=== PATIENT | male | born 1980 | race Caucasian/White ===

== ENCOUNTER 2017-04-10 12:22 | Emergency (ER) | payer SELFPAY ==
[~2017-04-10] VITALS: Ht 176.5 cm; Wt 112.4 kg
[2017-04-10 12:24] VITALS: BP 152/93; PULSE 74; TEMP 36.9; O2SAT 97; Ht 176.5 cm; Wt 112.4 kg
--- NOTE | 2017-04-10 13:37 | DIAGNOSTIC IMAGING REPORT ---
R HAND MIN 3 VIEWS ROUTINE CLINICAL HISTORY: Right hand pain. Trauma. COMPARISON: None. DISCUSSION: No acute fractures or dislocations are visualized. There is suspected widening of the scapholunate distance. This could represent a scapholunate ligamentous disruption. IMPRESSION: 1. No acute fractures or dislocations 2. Within the wrist, there is widening of the scapholunate distance Electronically signed by: Theo Johnson M.D. 04/10/2017 1:36 PM Dictated Date/Time: 04/10/2017 1:34 PM
[2017-04-10] MEDS ORDERED: NAPR-1169 PO (14:00)
--- NOTE | 2017-04-10 14:01 | EMERGENCY ROOM VISIT NOTE ---
ED Visit Note First contact with patient: 12:29 CHIEF COMPLAINT: Hand injury HISTORY OF PRESENT ILLNESS: This 37-year-old male patient presented to the emergency department ambulatory complaining of pain in the right hand. The patient reports he has had pain and swelling over the palmar aspect of the right third knuckle for the past 2-3 months. He states that he initially noticed swelling, and this has progressed to pain and difficulty moving the finger. He denies any trauma to the hands. He denies any family history of a similar condition. He has not been seen by orthopedics for this in the past. He rates his overall discomfort a 6/10. REVIEW OF SYSTEMS: A 6 system review of systems was completed with positives and pertinent negatives in the HPI. ALLERGIES: No known drug allergies MEDICATIONS: No chronic medications PMH: No significant past medical history. SOCIAL HISTORY: The patient lives locally with family. He is a smoker and admits to occasional alcohol use. PHYSICAL EXAM: Vital Signs: Reviewed Nurse's notes, vital signs stable. GENERAL : This is a 37-year-old male, in no acute distress, well-developed, well- nourished. MUSCULOSKELETAL: There is nodular swelling over the palmar aspect of the right third MCP. This is tender to palpation. Patient has full flexion and extension of the finger, but does have some increased discomfort with full extension. [employer] strength 5/5. There is no laceration. Capillary refill less than 2 seconds. No tenderness of the fingers or wrist. Full range of motion of the wrist. No snuff box tenderness. Radial pulse 2+. NEURO: Alert and oriented to person, place, and time. Normal sensation to light and sharp touch. RADIOGRAPHIC FINDINGS: R HAND MIN 3 VIEWS ROUTINE CLINICAL HISTORY: Right hand pain. Trauma. COMPARISON: None. DISCUSSION: No acute fractures or dislocations are visualized. There is suspected widening of the scapholunate distance. This could represent a scapholunate ligamentous disruption. IMPRESSION: 1. No acute fractures or dislocations 2. Within the wrist, there is widening of the scapholunate distance EMERGENCY DEPARTMENT COURSE: I examined the patient. An x-ray of the right hand was reviewed by myself and radiology and shows no acute findings. The patient appears to have a trigger finger of the right third digit. He was given a prescription for Naprosyn and information for orthopedic follow-up. He may benefit from a steroid injection. He verbalized understanding of my assessment and treatment plan. The patient was discharged home in good condition. Medication reconciliation: I attest that I have personally reviewed the patient 's current medication list. Blood Pressure Screening: Patient was found to have a slightly elevated blood pressure due to circumstances. I do not believe that the patient requires hypertension monitoring. DIAGNOSIS: Trigger finger right hand Current/Historical Medications Scheduled Naproxen (Naprosyn), 500 MG PO BID Allergies Coded Allergies: No Known Allergies (Unverified , 04/10/17) Vital Signs Date Time Temp Pulse Resp B/P (MAP) Pulse Ox O2 Delivery O2 Flow Rate FiO2 04/10/17 12:24 36.9 74 20 152/93 97 Room Air Departure Information Impression Primary Impression: Trigger finger, right middle finger Dispostion Home / Self-Care Condition GOOD Prescriptions Naproxen (Naprosyn) 500 Mg Tab 500 MG PO BID for 10 Days, #20 TAB Prov: Isidra Snowden, CHLOE 04/10/17 Referrals Boris Titus V.,D.ORoss (PCP) Mitchell Alfonso MD Patient Instructions My [facility] Additional Instructions Naprosyn as prescribed. Call [facility] to schedule a follow-up appointment. Return to the emergency department with any worsening or new/concerning symptoms.
== END 2017-04-10 14:22 | disposition home or self-care (01) ==
LOC: C.EDB 12:25 → C.EDD 14:22
DX: M65.331 Trigger finger, right middle finger (principal); F17.200 Nicotine dependence, unspecified, uncomplicated